=== PATIENT | male | born 1980 ===

== ENCOUNTER → 2017-08-28 | Outpatient (CLI) | payer SELFPAY | LOC: M ADAMS 11:07 | DX: S20.212A Contusion of left front wall of thorax, initial encounter (principal); S62.642A Nondisplaced fracture of proximal phalanx of right middle finger, initial encounter for closed fracture; X58.XXXA Exposure to other specified factors, initial encounter; Y92.89 Other specified places as the place of occurrence of the external cause | CPT/HCPCS: 71101 ==

== ENCOUNTER → 2018-07-19 | Outpatient (REF) | payer SELFPAY | LOC: M LAB REF 19:13 | PROVIDERS: ATTEND Physician Assistant Medical | DX: J02.9 Acute pharyngitis, unspecified (principal) ==